=== PATIENT | male | born 1995 | race Two or more races ===

== ENCOUNTER 2023-04-10 12:29 | Emergency (ER) | payer MEDICAID ==
[~2023-04-10] VITALS: Ht 180.3 cm; Wt 129.5 kg
[2023-04-10 15:21] VITALS: BP 113/69; PULSE 75; RESP 18; TEMP 98.5; O2SAT 96
[2023-04-10] MEDS ORDERED: KETOROLAC TROMETH 60MG/2ML VIAL IM ONE (15:45)
== END 2023-04-10 16:29 | disposition home or self-care (01) ==
LOC: ER 12:29
DX: S83.8X1A Sprain of other specified parts of right knee, initial encounter (principal); W05.1XXA Fall from non-moving nonmotorized scooter, initial encounter; Y93.89 Activity, other specified; Y92.89 Other specified places as the place of occurrence of the external cause; Y99.8 Other external cause status
CPT/HCPCS: 73562; 96372; 99283; J1885